=== PATIENT | female | born 1960 | race Caucasian/White ===

== ENCOUNTER 2017-12-26 17:23 | Observation (INO) | payer SELFPAY, OTHER ==
[~2017-12-26 17:23] MED LIST: ISOVUE-370 76%-LOCM 1 ML ONE
[2017-12-26 18:31] LABS: ALT (SGPT) 22 U/L (8-55); AST (SGOT) 40 U/L (5-34); Albumin 3.6 g/dL (3.5-5.0); Alkaline Phosphatase 97 U/L (40-150); Anion Gap 13 mmol/L (10-20); BUN (Urea Nitrogen) 4 mg/dL (9.8-20.1); Bilirubin, Total 1.2 mg/dL (0.2-1.2); Calc. Creatinine Clearance 0 mL/min (70-130); Carbon Dioxide 22 mmol/L (22-29); Chloride 101 mmol/L (98-107); Estimated GFR-MDRD Greater than 90; Globulin 2.9 g/dL (2.4-3.5); Glucose 141 mg/dL (70-105); Lipase 928 U/L (8-78); Magnesium 1.4 mg/dL (1.6-2.6); Potassium 3.2 mmol/L (3.5-5.1); Protein, Total 6.5 g/dL (6.0-8.3); Sodium 133 mmol/L (136-145)
[2017-12-26] MEDS ORDERED: Promethazine HCl 25 MG/ML VIAL ONE (18:31)
[2017-12-26 18:56] LABS: Bilirubin Negative (Negative); Blood, Urine Negative (Negative); Clarity CLEAR (Clear); Glucose, Urine (Dipstick) 100 mg/dL (Negative); Leukocyte Negative (Negative); Nitrite Negative (Negative); Protein, Urine (Dipstick) Negative (Neg-Trace); Specific Gravity, Urine 1.017 (1.002-1.036); Urobilinogen 0.2 mg/dL (0.2-1.0)
--- NOTE | 2017-12-26 19:12 | CT ---
ABDOMEN CT WITH CONTRAST PELVIC CT WITH CONTRAST: Date: 12/26/17 HISTORY: Pancreatitis. HISTORY: Elevated lipase. Nausea and vomiting. COMPARISON: None. FINDINGS: ABDOMEN CT: Lung bases are clear. Heart size is normal. No pericardial effusion. The descending thoracic aorta an d abdominal aorta have a normal caliber. No periaortic fat stranding. There is calcification of the l eft and right renal artery ostium. Symmetric attenuation of the psoas muscles. Gallbladder is unremarkable. Portal vein is patent. Hepatic steatosis is noted. No evidence of hepatic masses. The spleen and adrenal glands are unremark able. There is evidence of edematous change involving the head and proximal body of the pancreas. The pancr eatic duct is mildly dilated, measuring 4.0 mm. No evidence of a pancreatic cyst, pseudocyst, or jennifer pancreatic abscess. The adjacent duodenum does not demonstrate any significant inflammatory change. L imited evaluation of the alimentary canal. No evidence of bowel obstruction. Ileocecal junction is no rmal. Colon is unremarkable. There is evidence of diverticulosis, without evidence of diverticulitis. Symmetric enhancement of the kidneys. Bilaterally, no obstructive uropathy. CT PELVIS: Uterus and adnexal structures are unremarkable. No pelvic mass, lymphadenopathy, free air, or free fl uid. No lytic or blastic lesions in the osseous structures. IMPRESSION: Peripancreatic inflammatory change, compatible with patient's history of pancreatitis. No evidence of pancreatic cyst, pseudocyst, or abscess. POS: [facility]
[2017-12-26] MEDS ORDERED: Labetalol HCl 100 MG/20 ML VIAL ONE (19:52)
[2017-12-26] MEDS ORDERED: Magnesium 2 GM/50 ML 2 GM in Premix Bag 1 BAG IVPB ONE (20:30)
[2017-12-26] MEDS ORDERED: Acetaminophen 325 MG TAB PO PRN (21:06)
[2017-12-26] MEDS ORDERED: Acetaminophen 650 MG Suppository PR PRN (21:06)
[2017-12-26] MEDS ORDERED: Ondansetron HCl/PF 4 MG/2 ML Vial IVP PRN (21:06)
[2017-12-26] MEDS ORDERED: Enoxaparin Sodium 40 MG/0.4 ML SYRINGE SC SCH (21:15)
[2017-12-26] MEDS ORDERED: hydrALAZINE 20 MG/ML VIAL SLOW IVP PRN (21:26)
[2017-12-26] MEDS ORDERED: Magnesium 2 GM/50 ML 2 GM in Premix Bag 1 BAG IVPB SCH (21:30)
[2017-12-26 22:16] VITALS: BMI 18.5
--- NOTE | 2017-12-26 23:00 | HP ---
CHIEF COMPLAINT: Abdominal discomfort, nausea, and vomiting. HISTORY OF PRESENT ILLNESS: This is a 57-year-old female with past medical history of hypertension, anxiety, presenting with nausea, vomiting which started last night prior to the day of admission. Pe r neighbor and patient, patient has been vomiting continuously and she cannot be able to count how ma ny times she vomited, vomitus is nonbloody, nonbilious and patient states that she did not eat any ne w food and this is fairly new to her. She has not had this much vomiting in the past and patient sta cheryl that because of the vomiting, she has been having now generalized weakness. She is not able to t olerate anything p.o. The patient describes her abdominal discomfort as you know dull, crampy, abdom inal discomfort which does not radiate to the back. The patient states that due to continuous vomiti ng she [facility] and at the [facility], laboratory results came back wit h abnormal lipase; therefore, patient was then transferred to [facility] to be treated. The patien t denies any fever, headaches, dizziness, chills, chest pain, palpitations, urinary incontinence, con stipation or diarrhea. REVIEW OF SYSTEMS: Positive for nausea, vomiting, abdominal discomfort, otherwise as stated in HPI, all other systems were reviewed and are negative. PAST MEDICAL HISTORY: Hypertension. PAST SURGICAL HISTORY: , breast augmentation. PAST PSYCHIATRIC HISTORY: Anxiety. SOCIAL HISTORY: The patient lives at home. The patient states that she has a son who is 27 years ol d. The patient states that she drinks occasionally, smokes 2 packs per day. The patient denies any illicit drug use. ALLERGIES: The patient is allergic to AVELOX and CEPHALOSPORINS. FAMILY HISTORY: Reviewed and noncontributory. PHYSICAL EXAMINATION: VITAL SIGNS: Blood pressure 186/119, heart rate of 103, respiratory rate of 16, temperature of 98.5, oxygen saturation of 99 on room air. GENERAL: The patient is awake, alert, oriented, speaking in full sentences, does not appear to be in any acute distress. HEENT: Normocephalic, atraumatic. Pupils are equally round and reactive to light. Extraocular move ments are intact. No scleral icterus. Mucous membranes are dry. NECK: No JVD. Trachea is midline. Supple. LUNGS: Clear to auscultation bilaterally. No wheezing, no rales, no rhonchi. CARDIOVASCULAR: Positive S1, S2, regular rate and rhythm. No murmurs, no rubs, no gallops. ABDOMEN: Nontender, nondistended, hypoactive bowel sounds. No ecchymosis noted. EXTREMITIES: The patient has 5/5 upper extremity strength, 5/5 lower extremity strength. The patien t has good pulses of the upper and lower extremities bilaterally. No edema noted. NEUROLOGIC: Cranial nerves II-XII grossly intact. No neurological deficits noted. PSYCHIATRIC: The patient is alert, oriented x3, normal affect. LABORATORY DATA: Sodium 133, potassium 3.2, chloride 101, carbon dioxide of 22, anion gap of , BUN is 4, creatinine 0.6, glucose 141, calcium is 8.0, magnesium is 1.4, total bilirubin is 1.2, AST is 40, ALT is 22, alkaline phosphatase is 97, lipase of 928. Urinalysis negative for nitrite, negati ve for leukoesterase. Hematology: WBC of 14.3, RBC of 4.83, hemoglobin of 14.4, hematocrit of 42.9, MCV is 88.8, RDW is 13.1, and platelet count is 294. IMAGING: A CT of the abdomen and pelvis showed there is evidence of edematous change involving the h ead and proximal body of the pancreas. The pancreatic duct is mildly dilated measuring 4.0 mm. No e vidence of pancreatic cyst, pseudocyst or peripancreatic abscess. The adjacent duodenum does not dem onstrate any significant inflammatory change. Limited evaluation of the alimentary canal, no evidenc e of bowel obstruction. Ileocecal junction is normal. Colon is unremarkable. There is evidence of diverticulosis without evidence of diverticulitis. Impression showed that there is peripancreatic in flammatory change compatible with patient's history of pancreatitis. No evidence of pancreatic cyst, pseudocyst or abscess. ASSESSMENT AND PLAN: This is a 57-year-old female being admitted for: 1. Abdominal discomfort, nausea, and vomiting, likely secondary to acute pancreatitis as patient's l ipase is elevated at 968 and there is some inflammation around the pancreas. The patient has been st arted on IV fluids. We will continue the patient on IV fluids. We will make patient n.p.o. We will replete electrolytes and we will continue supportive care. We will give patient pain medication as needed. 2. Hypertension, uncontrolled. The patient's blood pressure is elevated in 180s. We will give the patient hydralazine p.r.n. The patient did not take her home medications due to vomiting and nausea. 3. History of anxiety. At this point, hold patient's home medications. We will start the patient's home medication when the patient is able to tolerate p.o. 4. Electrolyte derangements. We replete magnesium and potassium and we will check labs in the [facility]. 5. Deep venous thrombosis and gastrointestinal prophylaxis. We will do Lovenox and Pepcid.
[2017-12-26] MEDS: Lactated Ringer's 1,000 ML IV SCH (23:07)
[2017-12-26] MEDS ORDERED: Magnesium Sulfate 2 GM in Sodium Chloride 0.9% 100 ML IVPB SCH (23:30)
[2017-12-26] MEDS: Nicotine 21 MG PATCH TD SCH (23:39)
[2017-12-27] MEDS: Lactated Ringer's 1,000 ML IV SCH ×2 (05:29→17:10)
[2017-12-27 05:41] LABS: ALT (SGPT) 21 U/L (8-55); AST (SGOT) 45 U/L (5-34); Albumin 3.7 g/dL (3.5-5.0); Alkaline Phosphatase 102 U/L (40-150); Anion Gap 14 mmol/L (10-20); BUN (Urea Nitrogen) Less than 4 mg/dL (9.8-20.1); Bilirubin, Total 1.3 mg/dL (0.2-1.2); Calc. Creatinine Clearance 91 mL/min (70-130); Calcium 8.3 mg/dL (7.8-10.44); Carbon Dioxide 25 mmol/L (22-29); Cardiac Risk 2.4 (Less than 4.5); Chloride 92 mmol/L (98-107); Cholesterol 174 mg/dl (< 200 Desired); Estimated GFR-MDRD Greater than 90; Globulin 3.1 g/dL (2.4-3.5); Glucose 131 mg/dL (70-105); HDL Cholesterol 74 mg/dL (>60 Neg Risk); LDL Cholesterol, Calculated 71 mg/dL; Magnesium 2.2 mg/dL (1.6-2.6); Protein, Total 6.8 g/dL (6.0-8.3); Sodium 129 mmol/L (136-145); Triglycerides 146 mg/dL (Less than 150)
[2017-12-27 05:45] LABS: Potassium 2.2 mmol/L (3.5-5.1)
[2017-12-27 05:46] LABS: #Basophils 0.1 thou/uL (0.0-0.2); #Lymphocytes 2.3 thou/uL (1.20-3.40); #Monocytes 0.5 thou/uL (0.11-0.59); #Neutrophils 6.9 thou/uL (1.40-6.50); %Basophils 0.9 % (0.0-1.0); %Eosinophils 0.2 % (0.0-10.0); %Lymphocytes 23.3 % (21.0-51.0); %Monocytes 4.7 % (0.0-10.0); %Neutrophils 70.9 % (42.0-75.0); Hemoglobin 13.2 g/dL (12.0-16.0); Mean Corpuscular HGB CONC 33.7 g/dL (32.0-36.0); Mean Corpuscular Hemoglobin 30.7 pg (27.0-31.0); Mean Corpuscular Volume 91.2 fL (78.0-98.0); Mean Platelet Volume 7.4 fL (7.4-10.4); Platelet Count 250 thou/uL (130-400); RBC Distribution Width 13.5 % (11.5-14.5); Red Blood Cell (RBC) Count 4.31 mill/uL (4.20-5.40); White Blood Cell (WBC) Count 9.7 thou/uL (4.8-10.8)
[2017-12-27] MEDS: Potassium Chloride 20 MEQ in Premix Bag 1 BAG IVPB SCH ×2 (06:53→14:07)
--- NOTE | 2017-12-27 07:41 | ULT ---
RIGHT UPPER QUADRANT ULTRASOUND: Date: 12/27/17 INDICATION: Nausea and vomiting with pancreatitis. COMPARISON: CT of the abdomen and pelvis dated 12/26/17 at 1811 hours. TECHNIQUE: Bell scale, color Doppler, and spectral Doppler images were obtained of the right upper quadrant of t he abdomen. FINDINGS: The liver demonstrates no focal hepatic lesion. There is prominent edema surrounding the pancreatic head. The pancreatic duct at the level of the hea d measures 2.9 mm, which is slightly prominent. The gallbladder demonstrates no visible intraluminal stones. No gallbladder wall thickening or perich olecystic fluid is evident. No sonographic Sexton's sign is reported. Common bile duct measures up to 5.0 mm, which is within normal limits. The right kidney measures 10.0 x 3.8 x 3.8 cm. IMPRESSION: 1. No evidence of gallstones. 2. No evidence of acute cholecystitis. 3. Findings of peripancreatic edema consistent with patient's history of pancreatitis. There is slig ht prominence of the main pancreatic duct, which may be secondary to prominent edematous change in an d around the pancreatic head. Follow-up is recommended. POS: [facility]
[2017-12-27] MEDS ORDERED: Famotidine 20 MG TAB PO SCH ×2 (09:00→22:00)
[2017-12-27] MEDS: Famotidine/PF 20 mg/2ml Vial SLOW IVP SCH ×2 (09:24→22:04)
[2017-12-27] MEDS ORDERED: Potassium Chloride 20 MEQ TAB PO SCH ×3 (10:15→13:45)
[2017-12-27 12:34] LABS: ALT (SGPT) 18 U/L (8-55); AST (SGOT) 46 U/L (5-34); Albumin 3.6 g/dL (3.5-5.0); Alkaline Phosphatase 92 U/L (40-150); Anion Gap 16 mmol/L (10-20); BUN (Urea Nitrogen) Less than 4 mg/dL (9.8-20.1); Bilirubin, Direct 0.5 mg/dL (0.1-0.3); Bilirubin, Total 1.3 mg/dL (0.2-1.2); Calc. Creatinine Clearance 76 mL/min (70-130); Calcium 8.2 mg/dL (7.8-10.44); Carbon Dioxide 21 mmol/L (22-29); Chloride 93 mmol/L (98-107); Estimated GFR-MDRD 85; Glucose 173 mg/dL (70-105); Protein, Total 6.6 g/dL (6.0-8.3); Sodium 127 mmol/L (136-145)
--- NOTE | 2017-12-27 13:25 | PDOC.PN ---
- Subjective Encounter Start Date: 12/27/17 Encounter Start Time: 10:30 Subjective: pt up in bed no pain - Objective Resuscitation Status: Resuscitation Status FULL:Full Resuscitation Vital Signs & Weight: Vital Signs (12 hours) Temp Pulse Resp BP Pulse Ox 12/27/17 11:33 98.6 F 107 H 20 133/89 100 12/27/17 08:18 98.4 F 91 16 134/84 99 12/27/17 03:20 99.4 F 71 16 111/67 95 Weight Weight 118 lb 4.8 oz I&O: 12/26/17 12/27/17 12/28/17 06:59 06:59 06:59 Intake Total 1603 Output Total 1200 Balance 403 Result Diagrams: 12/27/17 04:45 12/27/17 11:53 Phys Exam - Physical Examination Respiratory: no wheezing, no rales, no rhonchi, wheezing present, clear to auscultation bilateral Cardiovascular: RRR, no significant murmur, no rub, gallop, irregular Gastrointestinal: soft, non-tender, no distention, positive bowel sounds Musculoskeletal: no edema, pulses present, edema present Dx/Plan (1) Pancreatitis Code(s): K85.90 - ACUTE PANCREATITIS WITHOUT NECROSIS OR INFECTION, UNSP Status: Acute (2) Nausea & vomiting Code(s): R11.2 - NAUSEA WITH VOMITING, UNSPECIFIED Status: Acute (3) Hypokalemia Code(s): E87.6 - HYPOKALEMIA Status: Acute (4) Hyponatremia Code(s): E87.1 - HYPO-OSMOLALITY AND HYPONATREMIA Status: Acute - Plan will advance diet -: pt's electrolytes are still low -: RUQ no gallstones -: if Na and K improved in am may be discharged -: discontinue fluids * . Review of Systems - Review of Systems ENT: negative: Ear Pain, Ear Discharge, Nose Pain, Nose Discharge, Nose Congestion, Mouth Pain, Mouth Swelling, Throat Pain, Throat Swelling, Other Respiratory: negative: Cough, Dry, Shortness of Breath, Hemoptysis, SOB with Excertion, Pleuritic Pain, Sputum, Wheezing Cardiovascular: negative: chest pain, palpitations, orthopnea, paroxysmal nocturnal dyspnea, edema, light headedness, other Gastrointestinal: negative: Nausea, Vomiting, Abdominal Pain, Diarrhea, Constipation, Melena, Hematochezia, Other Genitourinary: negative: Dysuria, Frequency, Incontinence, Hematuria, Retention , Other - Medications/Allergies Allergies/Adverse Reactions: Allergies Allergy/AdvReac Type Severity Reaction Status Date / Time Cephalosporins Allergy Rash Verified 12/26/17 22:23 Medications: Current Medications Acetaminophen (Tylenol) 650 mg PO Q4H PRN PRN Reason: Headache/Fever/Mild Pain (1-3) Last Admin: 12/27/17 10:46 Dose: 650 mg Acetaminophen (Tylenol) 650 mg MA Q4H PRN PRN Reason: Headache/Fever/Mild Pain (1-3) Famotidine (Pepcid) 20 mg SLOW IVP BID [facility] Last Admin: 12/27/17 09:24 Dose: 20 mg Hydralazine HCl (Apresoline) 10 mg SLOW IVP Q4H PRN PRN Reason: Hypertension Potassium Chloride 20 meq/ (Device) 100 mls @ 50 mls/hr IVPB [id number] [facility] Last Admin: 12/27/17 06:53 Dose: 100 mls Nicotine (Nicoderm Patch) 21 mg TD Q24HR [facility] Last Admin: 12/26/17 23:39 Dose: Not Given Ondansetron HCl (Zofran) 4 mg IVP Q6H PRN PRN Reason: Nausea/Vomiting Potassium Chloride (K-Dur) 40 meq PO BID-[facility] Sodium Chloride (Flush - Normal Saline) 10 ml IVF Q12HR PRN PRN Reason: Saline Flush
[2017-12-27] MEDS: Potassium Chloride 20 MEQ TAB PO SCH (17:39)
[2017-12-27] MEDS: Nicotine 21 MG PATCH TD SCH (22:08)
[2017-12-28 04:48] LABS: Anion Gap 13 mmol/L (10-20); BUN (Urea Nitrogen) Less than 4 mg/dL (9.8-20.1); Calc. Creatinine Clearance 85 mL/min (70-130); Calcium 8.8 mg/dL (7.8-10.44); Carbon Dioxide 23 mmol/L (22-29); Chloride 96 mmol/L (98-107); Estimated GFR-MDRD Greater than 90; Glucose 100 mg/dL (70-105); Sodium 128 mmol/L (136-145)
[2017-12-28 08:04] VITALS: BP 147/91; TEMP 98.1
[2017-12-28] MEDS: Potassium Chloride 20 MEQ TAB PO SCH (08:45)
[2017-12-28] MEDS ORDERED: Famotidine 20 MG TAB PO SCH (09:00)
--- NOTE | 2017-12-29 13:22 | DIS ---
DATE OF ADMISSION: 12/26/2017 DATE OF DISCHARGE: 12/28/2017 DISCHARGE DIAGNOSES: 1. Pancreatitis. 2. Nausea, vomiting. 3. Hypokalemia. 4. Hyponatremia. HISTORY OF PRESENT ILLNESS: Patient is a 57[facility] with some epigastric abdominal pain without radiati on. Patient initially presented to an outside facility where her labs were notable for elevated lipa se. Therefore, she was referred to our emergency department. Initially, the patient's white count w as 14.3. Sodium was slightly low at 134, potassium 3.1. Lipase was 1395. HOSPITAL COURSE: The patient was admitted to the hospital with what appeared to be pancreatitis. Ul trasound of the abdomen showed no evidence of gallstones or cholecystitis with evidence of peripancre atic edema consistent with pancreatitis and prominence of the main pancreatic duct. CT scan of the a bdomen revealed peripancreatic inflammation with no evidence of cyst, pseudocyst, or abscess. Her sy mptoms significantly improved with replacement of IV fluids for potassium normalized. Her sodium rem ained a bit low; however, prior records, she had some history of hyponatremia and she appeared to be stable at her current levels and she was completely asymptomatic and eager for discharge to [facility]. PHYSICAL EXAMINATION: VITAL SIGNS: On the day of discharge, temperature was 98.1, pulse 91, respirations 16, O2 saturation 98%, blood pressure was 147/91. GENERAL: She was awake, alert, oriented, pleasant, cooperative. HEART: Regular rate and rhythm without murmurs. LUNGS: Clear bilaterally. ABDOMEN: Soft, nontender, nondistended with positive bowel sounds. EXTREMITIES: Warm and dry. LABORATORY DATA: Sodium was 128. Her repeat lipase on the 2nd, it had come down to 928. White coun t had come down to 9.7. DISPOSITION: The patient is discharged to home. She will be on a regular diet and activity is as to lerated. She is encouraged to potentially stay away from high-fat foods. She will be on metoprolol 50 mg every day, eszopiclone 3 mg at bedtime, Klonopin 0.5 mg b.i.d. She is encouraged to avoid alco hol consumption. She is to follow up with Dr. Zamarripa in 7 days. I explained that Dr. Zamarripa _ ____ further investigations should he feel appropriate in order to continue to assess potential sourc es of the pancreatitis. She does not have significant alcohol abuse and appeared to have a normal ga llbladder.
== END 2017-12-28 09:57 | disposition home or self-care (01) ==
LOC: ERS 17:23 → 2SW 20:27
PROVIDERS: ADMIT Internal Medicine; ATTEND Internal Medicine
DX: K85.90 Acute pancreatitis without necrosis or infection, unspecified (principal); E87.6 Hypokalemia; E87.1 Hypo-osmolality and hyponatremia; I10 Essential (primary) hypertension; F41.9 Anxiety disorder, unspecified; F17.210 Nicotine dependence, cigarettes, uncomplicated; Z79.899 Other long term (current) drug therapy; Z88.1 Allergy status to other antibiotic agents
CPT/HCPCS: 36415; 74177; 76705; 80048; 80053; 80061; 83690; 83735; 85025; 96361; 96365; 96366; 96367; 96372; 96375; G0378; J1650; J2550; J3475; J3480; J7050; S0028

== ENCOUNTER 2024-03-13 14:19 | Inpatient (IN) | payer SELFPAY ==
[~2024-03-13 14:19] MED LIST changes: -ISOVUE-370 76%-LOCM 1 ML ONE; +Iopamidol-370 76% 500 ML MDV (1 ML CHARGE) ONE
[2024-03-13] MEDS ORDERED: LORazepam 2 MG/ML SYR.(CARPUJECT) ONE (14:35)
[2024-03-13 15:24] LABS: Actual Bicarbonate (HCO3v) 18.8 mEq/L (22-28); Analyzer IN Cardio ER; Base Excess -4.1 mEq/L (-2.0 to +3.0); Chloride (VBG) 83 mmol/L (98-106); Hematocrit-VBG 36 % (36.0-47.0); Hemoglobin (Hb) 12.2 g/dL (11.7-16.0); Potassium (VBG) 2.76 mmol/L (3.70-5.30); Sodium 113 mmol/L (133-146); pH (venous) 7.443 (7.32-7.43)
[2024-03-13 15:26] LABS: #Basophils 0.06 10x3/uL (0.0-0.2); #Eosinophils Less than 0.03 10x3/uL (0.0-0.7); %Basophils 0.4 % (0.0-1.0); %Eosinophils 0.1 % (0.0-10.0); %Lymphocytes 22.8 % (21.0-51.0); %Monocytes 7.9 % (0.0-10.0); Hematocrit 29.9 % (36.0-47.0); Mean Corpuscular HGB CONC 36.8 g/dL (32.0-36.0); Mean Corpuscular Volume 81.5 fL (78.0-98.0); Mean Platelet Volume 8.9 fL (7.4-10.4); Platelet Count 351 10x3/uL (130-400); RBC Distribution Width 13.6 % (11.5-14.5); Red Blood Cell (RBC) Count 3.67 mill/uL (4.20-5.40)
[2024-03-13 15:50] LABS: Chloride 84 mmol/L (98-107); Potassium 2.8 mmol/L (3.5-5.1)
[2024-03-13 15:51] LABS: Calcium 7.8 mg/dL (7.8-10.44); Glucose 135 mg/dL (80-115)
[2024-03-13 15:53] LABS: Anion Gap 17 mmol/L (10-20); Carbon Dioxide 14 mmol/L (23-31)
[2024-03-13 15:55] LABS: BUN (Urea Nitrogen) 5 mg/dL (9.8-20.1); Calc. Creatinine Clearance 0 mL/min (70-130); Estimated GFR 97
[2024-03-13 16:02] LABS: Sodium 112 mmol/L (136-145)
[2024-03-13] MEDS ORDERED: Calcium Carbonate 500 MG ChewTAB PO PRN (16:22)
[2024-03-13] MEDS ORDERED: Acetaminophen 650 MG Suppository PR PRN (16:22)
[2024-03-13] MEDS ORDERED: Ondansetron ODT 4 MG TAB PO PRN (16:22)
[2024-03-13] MEDS ORDERED: Acetaminophen 325 MG TAB PO PRN (16:22)
[2024-03-13] MEDS ORDERED: Ondansetron PF 4 MG/2 ML Vial IVP PRN (16:22)
[2024-03-13] MEDS ORDERED: Lorazepam 2 MG/ML VIAL SLOW IVP PRN (16:24)
[2024-03-13] MEDS: Admixture Fee 1 EACH in Sodium Chloride 3% 100 ML IVPB SCH (18:19)
[2024-03-13] MEDS ORDERED: clonazePAM 1 MG TAB PO SCH (19:30)
[2024-03-13] MEDS ORDERED: Electrolyte Replacement Protocol FS SCH (19:45)
[2024-03-13 19:48] LABS: Anion Gap 16 mmol/L (10-20); BUN (Urea Nitrogen) 5 mg/dL (9.8-20.1); Calc. Creatinine Clearance 92 mL/min (70-130); Calcium 7.8 mg/dL (7.8-10.44); Carbon Dioxide 19 mmol/L (23-31); Chloride 85 mmol/L (98-107); Estimated GFR 100; Glucose 119 mg/dL (80-115); Potassium 2.7 mmol/L (3.5-5.1)
[2024-03-13 19:51] LABS: Sodium 117 mmol/L (136-145)
[2024-03-13] MEDS ORDERED: Famotidine 20 MG TAB ONE (20:12)
[2024-03-13] MEDS ORDERED: chlordiazePOXIDE HCl 25 MG CAP ONE (20:12)
[2024-03-13] MEDS ORDERED: Thiamine HCl 200 MG/2 ML VIAL ONE (20:12)
[2024-03-13 20:16] LABS: Phosphorus 2.5 mg/dL (2.3-4.7)
[2024-03-13] MEDS: Famotidine 20 MG TAB PO SCH (20:20)
[2024-03-13] MEDS: Thiamine HCl 200 MG/2 ML VIAL SLOW IVP SCH (20:20)
[2024-03-13] MEDS: chlordiazePOXIDE HCl 25 MG CAP PO SCH (20:20)
[2024-03-13 20:22] LABS: Anion Gap 13 mmol/L (10-20); BUN (Urea Nitrogen) 5 mg/dL (9.8-20.1); Calc. Creatinine Clearance 92 mL/min (70-130); Calcium 7.9 mg/dL (7.8-10.44); Carbon Dioxide 20 mmol/L (23-31); Chloride 87 mmol/L (98-107); Estimated GFR 100; Glucose 110 mg/dL (80-115); Magnesium 1.7 mg/dL (1.6-2.6); Sodium 117 mmol/L (136-145)
[2024-03-13 22:31] LABS: Anion Gap 12 mmol/L (10-20); BUN (Urea Nitrogen) 4 mg/dL (9.8-20.1); Calc. Creatinine Clearance 95 mL/min (70-130); Carbon Dioxide 19 mmol/L (23-31); Chloride 90 mmol/L (98-107); Estimated GFR 101; Glucose 101 mg/dL (80-115); Potassium 2.9 mmol/L (3.5-5.1); Sodium 118 mmol/L (136-145)
[2024-03-13] MEDS: Famotidine/PF 20 mg/2ml Vial SLOW IVP SCH (22:45)
[2024-03-13] MEDS: Magnesium 2 GM/50 ML(in water) 2 GM in Premix 1 BAG IVPB SCH (23:30)
[2024-03-13] MEDS: Lorazepam 2 MG/ML VIAL SLOW IVP PRN (23:32)
[2024-03-13] MEDS: Potassium Chloride 20 MEQ TAB PO SCH (23:32)
[2024-03-14] MEDS: Lorazepam 2 MG/ML VIAL SLOW IVP SCH (00:50)
[2024-03-14] MEDS: Dexmedetomidine In 0.9 % NaCl 100 ML IVPB SCH (00:50)
[2024-03-14 01:09] LABS: Bilirubin Negative (Negative); Blood, Urine Negative (Negative); CAUTI Indications for Culture Alt mental st,lethar; Clarity Clear (Clear); Glucose, Urine (Dipstick) Normal (Negative); Ketone, Urine Negative (Negative); Leukocyte Negative Leu/uL (Negative); Nitrite Negative (Negative); Protein, Urine (Dipstick) Negative (Neg-Trace); RBC/HPF 0-3 HPF (0-3); Specific Gravity, Urine 1.003 (1.002-1.036); Squamous Epithelial 0-3 HPF (0-3); Urobilinogen Normal mg/dL (Less than 2); WBC/HPF 0-3 HPF (0-3)
[2024-03-14 01:10] LABS: Bacteria/HPF 1+ HPF (None Seen); Urine Culture Reflex No No
[2024-03-14 01:21] LABS: Anion Gap 15 mmol/L (10-20); BUN (Urea Nitrogen) 5 mg/dL (9.8-20.1); Calc. Creatinine Clearance 88 mL/min (70-130); Calcium 8.1 mg/dL (7.8-10.44); Carbon Dioxide 22 mmol/L (23-31); Chloride 88 mmol/L (98-107); Estimated GFR 99; Glucose 104 mg/dL (80-115); Potassium 3.1 mmol/L (3.5-5.1); Sodium 122 mmol/L (136-145)
[2024-03-14] MEDS ORDERED: Dextrose 5% in Water 1,000 ML IV SCH (02:00)
[2024-03-14 05:48] VITALS: BMI 18.6
[2024-03-14 05:52] LABS: #Basophils 0.07 10x3/uL (0.0-0.2); %Basophils 0.5 % (0.0-1.0); %Eosinophils 0.5 % (0.0-10.0); %Lymphocytes 27.1 % (21.0-51.0); %Monocytes 8.4 % (0.0-10.0); Hematocrit 33.3 % (36.0-47.0); Hemoglobin 11.9 g/dL (12.0-16.0); Mean Corpuscular HGB CONC 35.7 g/dL (32.0-36.0); Mean Corpuscular Hemoglobin 29.3 pg (27.0-31.0); Platelet Count 390 10x3/uL (130-400); RBC Distribution Width 13.9 % (11.5-14.5); Red Blood Cell (RBC) Count 4.06 mill/uL (4.20-5.40)
[2024-03-14 06:10] LABS: Anion Gap 12 mmol/L (10-20); BUN (Urea Nitrogen) 5 mg/dL (9.8-20.1); Calc. Creatinine Clearance 75 mL/min (70-130); Calcium 8.1 mg/dL (7.8-10.44); Carbon Dioxide 23 mmol/L (23-31); Chloride 92 mmol/L (98-107); Estimated GFR 99; Glucose 101 mg/dL (80-115); Magnesium 2.8 mg/dL (1.6-2.6); Phosphorus 3.1 mg/dL (2.3-4.7); Potassium 3.3 mmol/L (3.5-5.1); Sodium 124 mmol/L (136-145)
[2024-03-14] MEDS ORDERED: Electrolyte Replacement Protocol FS PRN (06:15)
[2024-03-14] MEDS: Dextrose 5% in Water 1,000 ML IV SCH (06:26)
[2024-03-14] MEDS: Potassium Chloride 20 MEQ TAB PO SCH (06:34)
[2024-03-14 06:52] LABS: Anion Gap 12 mmol/L (10-20); BUN (Urea Nitrogen) 4 mg/dL (9.8-20.1); Calc. Creatinine Clearance 74 mL/min (70-130); Calcium 8.2 mg/dL (7.8-10.44); Carbon Dioxide 24 mmol/L (23-31); Chloride 92 mmol/L (98-107); Estimated GFR 99; Glucose 102 mg/dL (80-115); Potassium 3.4 mmol/L (3.5-5.1); Sodium 125 mmol/L (136-145)
[2024-03-14 08:37] LABS: Anion Gap 12 mmol/L (10-20); BUN (Urea Nitrogen) 4 mg/dL (9.8-20.1); Calc. Creatinine Clearance 76 mL/min (70-130); Calcium 7.9 mg/dL (7.8-10.44); Carbon Dioxide 21 mmol/L (23-31); Chloride 94 mmol/L (98-107); Estimated GFR 100; Glucose 110 mg/dL (80-115); Potassium 3.6 mmol/L (3.5-5.1); Sodium 123 mmol/L (136-145)
[2024-03-14] MEDS: Folic Acid 1 MG TAB PO SCH (09:26)
[2024-03-14] MEDS: Multivitamin W/ Minerals 1 TAB PO SCH (09:27)
[2024-03-14] MEDS: Sodium Chloride 0.9% 1,000 ML IV SCH (09:28)
[2024-03-14 12:27] LABS: Potassium 4.1 mmol/L (3.5-5.1)
[2024-03-14 15:29] VITALS: BMI 18.6
[2024-03-15] MEDS: Loratadine 10 MG TAB PO SCH (05:25)
[2024-03-15 07:03] LABS: Anion Gap 11 mmol/L (10-20); BUN (Urea Nitrogen) 4 mg/dL (9.8-20.1); Calc. Creatinine Clearance 64 mL/min (70-130); Calcium 7.9 mg/dL (7.8-10.44); Carbon Dioxide 19 mmol/L (23-31); Chloride 104 mmol/L (98-107); Estimated GFR 84; Glucose 89 mg/dL (80-115); Magnesium 2.1 mg/dL (1.6-2.6); Potassium 3.8 mmol/L (3.5-5.1); Sodium 130 mmol/L (136-145)
[2024-03-15 15:53] VITALS: TEMP 98.5
[2024-03-15 16:04] VITALS: BP 149/76
[2024-03-17] MEDS ORDERED: chlordiazePOXIDE HCl 5 MG CAP PO SCH (21:00)
[2024-03-17] MEDS ORDERED: Thiamine 100 MG TAB PO SCH (21:00)
[2024-03-21] MEDS ORDERED: chlordiazePOXIDE HCl 5 MG CAP PO SCH (21:00)
== END 2024-03-15 18:55 | disposition left against medical advice (07) | DRG 643 ==
LOC: ERS 14:19 → ERHOLD 16:28 → CCU 20:54 → T4-A 03-15 15:08
PROVIDERS: ADMIT Student in an Organized Health Care Education/Training Program; ATTEND Family Medicine
PROC: XX20X89 Monitoring of Brain Electrical Activity, Computer-aided Detection and Notification, New Technology Group 9 (ICD-10-PCS; principal; 2024-03-13)
DX: E22.2 Syndrome of inappropriate secretion of antidiuretic hormone (principal); G93.41 Metabolic encephalopathy; E46 Unspecified protein-calorie malnutrition; Z68.1 Body mass index [BMI] 19.9 or less, adult; E87.20 Acidosis, unspecified; E87.6 Hypokalemia; I10 Essential (primary) hypertension; D72.829 Elevated white blood cell count, unspecified
CPT/HCPCS: 36415; 70450; 71045; 76770; 80048; 82805; 83735; 84100; 84300; 85025; 93005; 96361; 96374; J2060; J3411; J3475; J7030; J7070; J7131; Q9967

== ENCOUNTER 2024-04-11 20:04 | Inpatient (IN) | payer SELFPAY ==
[2024-04-11 21:29] VITALS: BMI 17.4
[2024-04-11] MEDS ORDERED: Ondansetron ODT 4 MG TAB PO PRN ×2 (21:49→21:57)
[2024-04-11] MEDS ORDERED: Bisacodyl 5 MG TAB PO PRN (21:49)
[2024-04-11] MEDS ORDERED: Acetaminophen 325 MG TAB PO PRN (21:49)
[2024-04-11] MEDS ORDERED: Senokot S 8.6-50 MG TAB PO PRN (21:49)
[2024-04-11] MEDS ORDERED: Acetaminophen 650 MG Suppository PR PRN (21:49)
[2024-04-11] MEDS ORDERED: Electrolyte Replacement Protocol 1 EACH FS SCH (22:00)
[2024-04-11] MEDS: Doxepin HCl 10 MG CAP PO PRN (22:43)
[2024-04-11] MEDS: Thiamine HCl 200 MG/2 ML VIAL SLOW IVP SCH (22:43)
[2024-04-11 23:19] LABS: Anion Gap 12 mmol/L (10-20); BUN (Urea Nitrogen) 4 mg/dL (9.8-20.1); Calc. Creatinine Clearance 70 mL/min (70-130); Calcium 8.2 mg/dL (7.8-10.44); Carbon Dioxide 25 mmol/L (23-31); Chloride 92 mmol/L (98-107); Estimated GFR 99; Glucose 102 mg/dL (80-115); Magnesium 1.7 mg/dL (1.6-2.6); Sodium 126 mmol/L (136-145)
[2024-04-11 23:20] LABS: Cardiac Risk 2.5 (Less than 4.5); Cholesterol 171 mg/dl (< 200 Desired); HDL Cholesterol 69 mg/dL (>60 Neg Risk); LDL Cholesterol, Calculated 88 mg/dL; Phosphorus 2.7 mg/dL (2.3-4.7); Triglycerides 71 mg/dL (Less than 150)
[2024-04-12] MEDS: Potassium Chloride 20 MEQ TAB PO SCH ×2 (01:04→09:07)
[2024-04-12] MEDS: Magnesium 2 GM/50 ML(in water) 2 GM in Premix 1 BAG IVPB SCH (01:04)
[2024-04-12] MEDS: traZODone HCl 50 MG TAB PO SCH (01:04)
[2024-04-12] MEDS: Lorazepam 1 MG TAB PO PRN (02:45)
[2024-04-12] MEDS: Melatonin 3 MG TAB PO PRN (02:45)
[2024-04-12 04:45] LABS: #Basophils 0.07 10x3/uL (0.0-0.2); #Eosinophils Less than 0.03 10x3/uL (0.0-0.7); %Basophils 0.7 % (0.0-1.0); %Eosinophils 0.2 % (0.0-10.0); %Lymphocytes 33.5 % (21.0-51.0); %Monocytes 9.9 % (0.0-10.0); %Neutrophils 55.1 % (42.0-75.0); Hematocrit 29.2 % (36.0-47.0); Hemoglobin 10.3 g/dL (12.0-16.0); Mean Corpuscular HGB CONC 35.3 g/dL (32.0-36.0); Mean Corpuscular Volume 82.3 fL (78.0-98.0); Mean Platelet Volume 9.5 fL (7.4-10.4); Platelet Count 323 10x3/uL (130-400); RBC Distribution Width 15.9 % (11.5-14.5); Red Blood Cell (RBC) Count 3.55 mill/uL (4.20-5.40)
[2024-04-12 05:30] LABS: Anion Gap 11 mmol/L (10-20); BUN (Urea Nitrogen) 4 mg/dL (9.8-20.1); Calc. Creatinine Clearance 73 mL/min (70-130); Carbon Dioxide 22 mmol/L (23-31); Chloride 95 mmol/L (98-107); Estimated GFR 100; Glucose 88 mg/dL (80-115); Potassium 3.3 mmol/L (3.5-5.1); Sodium 125 mmol/L (136-145)
[2024-04-12] MEDS: Multivit, Therapeutic 1 TAB PO SCH (09:07)
[2024-04-12] MEDS: Folic Acid 1 MG TAB PO SCH (09:07)
[2024-04-12] MEDS: Enoxaparin 40 MG (0.4 mL) SYRINGE SC SCH (09:07)
[2024-04-12] MEDS: Pantoprazole 40 MG DR.TAB PO SCH (09:08)
[2024-04-12 10:59] VITALS: BMI 17.4
[2024-04-12] MEDS: Sodium Chloride 1 GM TAB PO SCH (15:06)
[2024-04-12] MEDS: Simethicone Chewable 80 MG TAB PO PRN (15:06)
[2024-04-12 16:13] LABS: Potassium 5.1 mmol/L (3.5-5.1)
[2024-04-12 16:40] VITALS: BP 153/83; TEMP 98.8
[2024-04-12] MEDS ORDERED: Lorazepam 1 MG TAB PO PRN (21:57)
[2024-04-13] MEDS ORDERED: Lorazepam 1 MG TAB PO PRN (21:57)
[2024-04-14] MEDS ORDERED: Thiamine 100 MG TAB PO SCH (21:00)
[2024-04-14] MEDS ORDERED: Lorazepam 0.5 MG TAB PO PRN (21:57)
== END 2024-04-12 18:24 | disposition left against medical advice (07) | DRG 641 ==
LOC: 2NO 20:57 → OBSVTOIN 21:49
PROVIDERS: ADMIT Internal Medicine; ATTEND Internal Medicine
DX: E87.1 Hypo-osmolality and hyponatremia (principal); G47.00 Insomnia, unspecified; F41.9 Anxiety disorder, unspecified; I10 Essential (primary) hypertension; Z88.8 Allergy status to other drugs, medicaments and biological substances; Z79.899 Other long term (current) drug therapy; R77.8 Other specified abnormalities of plasma proteins; E87.6 Hypokalemia; E83.42 Hypomagnesemia
CPT/HCPCS: 36415; 80061; 83735; 83930; 84100; 84443; 85025; J1650; J3411; J3475

== ENCOUNTER 2024-12-10 20:44 | Inpatient (IN) | payer SELFPAY ==
[2024-12-10] MEDS ORDERED: NOREPINEPHRINE 8 MG/250 ML-D5W 250 ML ONE (20:51)
[2024-12-10 21:07] LABS: Analyzer IN Cardio ER; Base Excess (BEa) -8.9 mEq/L (-2.0 to +3.0); CO2 Tension 25.3 mmHg (35.0-45.0); Calcium, Ionized (arterial) 1.31 mmol/L (1.12-1.30); Hematocrit-ABG 37 % (36.0-47.0); Hemoglobin (Hb) 12.6 g/dL (12.0-16.0); O2 Tension (PaO2), arterial 169.0 mmHg (> 80.0); pH, Arterial 7.377 (7.35-7.45)
[2024-12-10 21:33] LABS: #Basophils 0.05 10x3/uL (0.0-0.2); #Eosinophils Less than 0.03 10x3/uL (0.0-0.7); #Monocytes 0.81 10x3/uL (0.11-0.59); #Neutrophils 18.00 10x3/uL (1.40-6.50); %Basophils 0.2 % (0.0-1.0); %Eosinophils 0.0 % (0.0-10.0); %Lymphocytes 9.3 % (21.0-51.0); %Monocytes 3.7 % (0.0-10.0); %Neutrophils 83.0 % (42.0-75.0); Hematocrit 35.6 % (36.0-47.0); Hemoglobin 11.0 g/dL (12.0-16.0); Mean Corpuscular Hemoglobin 29.5 pg (27.0-31.0); Mean Corpuscular Volume 95.4 fL (78.0-98.0); Platelet Count 268 10x3/uL (130-400); Red Blood Cell (RBC) Count 3.73 mill/uL (4.20-5.40); White Blood Cell (WBC) Count 21.72 10x3/uL (4.8-10.8)
[2024-12-10] MEDS ORDERED: LevoFLOXacin 750 mg/D5W 150 ml Premix Bag ONE (21:40)
[2024-12-10 21:47] LABS: Cocaine Metabolite Screen Negative (Negative); THC/Cannabinoid Screen PRELIM POSITIVE (Negative); Tricyclic Screen Negative (Negative)
[2024-12-10 21:50] LABS: Bacteria/HPF 4+ HPF (None Seen); CAUTI Indications for Culture Alt mental st,lethar; Glucose, Urine (Dipstick) Normal (Negative); Leukocyte 500 Leu/uL (Negative); Lipase 91 U/L (8-78); Protein, Urine (Dipstick) 30 mg/dL (Neg-Trace); RBC/HPF 21-50 HPF (0-3); Specific Gravity, Urine 1.013 (1.002-1.036); WBC/HPF Greater than 50 HPF (0-3)
[2024-12-10 21:52] LABS: Acetaminophen Less than 10 mcg/mL (Less than 10); Salicylate Less than 8.0 mg/dL (Less than 8.0)
[2024-12-10 22:01] LABS: ALT (SGPT) 21 U/L (Less than 34); AST (SGOT) 64 U/L (11-34); Albumin 2.2 g/dL (3.1-4.5); Alkaline Phosphatase 63 U/L (40-110); Anion Gap 23 mmol/L (10-20); BUN (Urea Nitrogen) 52 mg/dL (9.8-20.1); Bilirubin, Total 1.0 mg/dL (0.3-1.2); CK (CPK) 192 U/L (29-168); Calc. Creatinine Clearance 0 mL/min (70-130); Calcium 9.3 mg/dL (7.8-10.44); Carbon Dioxide 18 mmol/L (23-31); Chloride 131 mmol/L (98-107); Globulin 3.3 g/dL (2.4-3.5); Glucose 122 mg/dL (80-115); Potassium 2.3 mmol/L (3.5-5.1); Sodium 170 mmol/L (136-145)
[2024-12-10] MEDS ORDERED: Potassium Bicarbonate/Cit Ac 20 MEQ TAB ONE (22:45)
[2024-12-11] MEDS ORDERED: Ondansetron PF 4 MG/2 ML Vial IVP PRN (00:58)
[2024-12-11] MEDS ORDERED: Acetaminophen 325 MG TAB PO PRN (00:58)
[2024-12-11] MEDS ORDERED: DISCONTINUE PREVIOUS NARCOTIC PAIN MEDICATIONS AND BENZODIAZEPINES FS SCH (01:15)
[2024-12-11] MEDS ORDERED: Propofol BOLUS 1,000 MG/100 ML VIAL IV PRN (01:15)
[2024-12-11] MEDS ORDERED: Fentanyl BOLUS 100 ML IVPB PRN (01:15)
[2024-12-11] MEDS ORDERED: Ventilator Sedation Protocol 1 EACH FS SCH (01:15)
[2024-12-11 02:06] LABS: #Basophils 0.06 10x3/uL (0.0-0.2); #Eosinophils Less than 0.03 10x3/uL (0.0-0.7); #Monocytes 0.99 10x3/uL (0.11-0.59); #Neutrophils 17.02 10x3/uL (1.40-6.50); %Basophils 0.3 % (0.0-1.0); %Eosinophils 0.0 % (0.0-10.0); %Lymphocytes 17.1 % (21.0-51.0); %Monocytes 4.3 % (0.0-10.0); %Neutrophils 74.7 % (42.0-75.0); Hematocrit 33.5 % (36.0-47.0); Hemoglobin 10.2 g/dL (12.0-16.0); Mean Corpuscular Hemoglobin 29.7 pg (27.0-31.0); Mean Corpuscular Volume 97.4 fL (78.0-98.0); Platelet Count 260 10x3/uL (130-400); Red Blood Cell (RBC) Count 3.44 mill/uL (4.20-5.40); White Blood Cell (WBC) Count 22.78 10x3/uL (4.8-10.8)
[2024-12-11 02:16] VITALS: BMI 14.8
[2024-12-11] MEDS: levETIRAcetam 500 MG (5 mL) VIAL SLOW IVP SCH ×3 (02:44→09:09)
[2024-12-11] MEDS: Magnesium 2 GM/50 ML(in water) 2 GM in Premix 1 BAG IVPB SCH (02:44)
[2024-12-11] MEDS: Potassium Bicarbonate/Cit Ac 20 MEQ TAB PER TUBE SCH (02:45)
[2024-12-11 04:10] LABS: ALT (SGPT) 21 U/L (Less than 34); AST (SGOT) 61 U/L (11-34); Albumin 1.9 g/dL (3.1-4.5); Alkaline Phosphatase 56 U/L (40-110); Anion Gap 25 mmol/L (10-20); BUN (Urea Nitrogen) 51 mg/dL (9.8-20.1); Bilirubin, Total 1.1 mg/dL (0.3-1.2); CK (CPK) 256 U/L (29-168); Calc. Creatinine Clearance 14 mL/min (70-130); Calcium 8.6 mg/dL (7.8-10.44); Carbon Dioxide 13 mmol/L (23-31); Chloride 129 mmol/L (98-107); Globulin 3.0 g/dL (2.4-3.5); Glucose 201 mg/dL (80-115); Magnesium 1.9 mg/dL (1.6-2.6); Potassium 2.6 mmol/L (3.5-5.1); Sodium 164 mmol/L (136-145)
[2024-12-11] MEDS ORDERED: NOREPINEPHRINE 8 MG/250 ML-D5W 250 ML IVPB SCH (04:15)
[2024-12-11] MEDS: Hydrocortisone Sod Succ/PF 100 mg/2 ml Vial IVP SCH ×2 (04:37→06:20)
[2024-12-11] MEDS: Albumin 25% 25 GM (100 mL) BOT IVPB SCH ×2 (04:38→06:19)
[2024-12-11] MEDS: Vasopressin In 0.9 % NaCl 100 ML IV SCH ×2 (04:58→21:23)
[2024-12-11] MEDS: Acetaminophen 325 MG TAB PO SCH (06:19)
[2024-12-11 07:28] LABS: Actual Bicarbonate (HCO3a) 18.1 mEq/L (22-28); Base Excess (BEa) -4.7 mEq/L (-2.0 to +3.0); CO2 Tension 25.7 mmHg (35.0-45.0); Calcium, Ionized (arterial) 1.13 mmol/L (1.12-1.30); Hematocrit-ABG 26 % (36.0-47.0); Hemoglobin (Hb) 9.0 g/dL (12.0-16.0); O2 Tension (PaO2), arterial 109.9 mmHg (> 80.0); Potassium - ABG Lab 3.79 mmol/L (3.70-5.30); pH, Arterial 7.466 (7.35-7.45)
[2024-12-11 07:34] LABS: ALV-art Gradient 214.475 mmHg (0-20); Puncture Site Left Radial artery
[2024-12-11 07:54] LABS: Anion Gap 21 mmol/L (10-20); BUN (Urea Nitrogen) 48 mg/dL (9.8-20.1); Calc. Creatinine Clearance 16 mL/min (70-130); Calcium 8.9 mg/dL (7.8-10.44); Carbon Dioxide 17 mmol/L (23-31); Chloride 119 mmol/L (98-107); Glucose 238 mg/dL (80-115); Potassium 3.7 mmol/L (3.5-5.1); Sodium 153 mmol/L (136-145)
[2024-12-11] MEDS ORDERED: Aspirin 81 mg Enteric Coated Tablet PO SCH (09:00)
[2024-12-11] MEDS: Nitroglycerin 2% Ointment 1 INCH/1 GM Packet TOP SCH (09:06)
[2024-12-11] MEDS: Aspirin Chewable 81 MG TAB PER TUBE SCH (09:09)
[2024-12-11] MEDS: Pantoprazole 40 MG VIAL IVP SCH (09:09)
[2024-12-11] MEDS: Enoxaparin 30 MG (0.3 mL) SYRINGE SC SCH (09:09)
[2024-12-11 09:32] LABS: ALT (SGPT) 16 U/L (Less than 34); AST (SGOT) 45 U/L (11-34); Albumin 3.9 g/dL (3.1-4.5); Alkaline Phosphatase 37 U/L (40-110); Anion Gap 21 mmol/L (10-20); BUN (Urea Nitrogen) 48 mg/dL (9.8-20.1); Bilirubin, Total 1.6 mg/dL (0.3-1.2); Calc. Creatinine Clearance 15 mL/min (70-130); Calcium 8.7 mg/dL (7.8-10.44); Carbon Dioxide 20 mmol/L (23-31); Chloride 119 mmol/L (98-107); Globulin 1.7 g/dL (2.4-3.5); Glucose 249 mg/dL (80-115); Potassium 3.7 mmol/L (3.5-5.1); Sodium 156 mmol/L (136-145)
[2024-12-11] MEDS ORDERED: Heparin 10,000 UNITS/ 10 ML VIAL SLOW IVP SCH ×2 (11:00→21:00)
[2024-12-11 11:19] VITALS: BMI 15.0
[2024-12-11 13:42] LABS: Hematocrit 23.7 % (36.0-47.0); Hemoglobin 7.4 g/dL (12.0-16.0); Platelet Count 135 10x3/uL (130-400)
[2024-12-11 14:04] LABS: Anion Gap 21 mmol/L (10-20); BUN (Urea Nitrogen) 44 mg/dL (9.8-20.1); Calc. Creatinine Clearance 18 mL/min (70-130); Calcium 7.7 mg/dL (7.8-10.44); Carbon Dioxide 13 mmol/L (23-31); Chloride 124 mmol/L (98-107); Glucose 207 mg/dL (80-115); Potassium 3.4 mmol/L (3.5-5.1); Sodium 155 mmol/L (136-145)
[2024-12-11] MEDS: Potassium Chloride 20 MEQ in Premix 1 BAG IVPB SCH (15:12)
[2024-12-11 17:46] LABS: Anion Gap 24 mmol/L (10-20); BUN (Urea Nitrogen) 39 mg/dL (9.8-20.1); Calc. Creatinine Clearance 18 mL/min (70-130); Calcium 7.7 mg/dL (7.8-10.44); Carbon Dioxide 13 mmol/L (23-31); Chloride 126 mmol/L (98-107); Glucose 200 mg/dL (80-115); Potassium 4.2 mmol/L (3.5-5.1); Sodium 159 mmol/L (136-145)
[2024-12-11 21:58] LABS: Anion Gap 25 mmol/L (10-20); BUN (Urea Nitrogen) 39 mg/dL (9.8-20.1); Calc. Creatinine Clearance 18 mL/min (70-130); Calcium 7.7 mg/dL (7.8-10.44); Carbon Dioxide 10 mmol/L (23-31); Chloride 129 mmol/L (98-107); Glucose 178 mg/dL (80-115); Potassium 4.3 mmol/L (3.5-5.1); Sodium 160 mmol/L (136-145)
[2024-12-12] MEDS: NOREPINEPHRINE 8 MG/250 ML-D5W 250 ML IVPB SCH (00:20)
[2024-12-12] MEDS: Sodium Bicarb 50 MEQ/50 ML Abboject 8.4% SYRINGE IVP SCH (00:20)
[2024-12-12 01:42] LABS: Anion Gap 26 mmol/L (10-20); BUN (Urea Nitrogen) 39 mg/dL (9.8-20.1); Calc. Creatinine Clearance 18 mL/min (70-130); Calcium 7.4 mg/dL (7.8-10.44); Carbon Dioxide 10 mmol/L (23-31); Chloride 127 mmol/L (98-107); Glucose 180 mg/dL (80-115); Potassium 4.5 mmol/L (3.5-5.1); Sodium 158 mmol/L (136-145)
[2024-12-12] MEDS ORDERED: Sodium Bicarb 50 MEQ/50 ML Abboject 8.4% SYRINGE IVP SCH (02:15)
[2024-12-12] MEDS: Sodium Bicarb 50 MEQ/50 ML Abboject 8.4% SYRINGE ONE (02:20)
[2024-12-12 02:31] LABS: Actual Bicarbonate (HCO3a) 26.4 mEq/L (22-28); Base Excess (BEa) 5.1 mEq/L (-2.0 to +3.0); CO2 Tension 26.4 mmHg (35.0-45.0); Calcium, Ionized (arterial) 0.82 mmol/L (1.12-1.30); Hematocrit-ABG 23 % (36.0-47.0); Hemoglobin (Hb) 7.8 g/dL (12.0-16.0); O2 Tension (PaO2), arterial 92.2 mmHg (> 80.0); Potassium - ABG Lab 4.18 mmol/L (3.70-5.30)
[2024-12-12 02:32] LABS: pH, Arterial 7.618 (7.35-7.45)
[2024-12-12 03:58] LABS: Hematocrit 25.1 % (36.0-47.0); Hemoglobin 8.1 g/dL (12.0-16.0); Mean Corpuscular Hemoglobin 30.2 pg (27.0-31.0); Mean Corpuscular Volume 93.7 fL (78.0-98.0); Platelet Count 138 10x3/uL (130-400); Red Blood Cell (RBC) Count 2.68 mill/uL (4.20-5.40); White Blood Cell (WBC) Count 24.59 10x3/uL (4.8-10.8)
[2024-12-12 04:04] LABS: ALT (SGPT) 30 U/L (Less than 34); AST (SGOT) 132 U/L (11-34); Albumin 2.9 g/dL (3.1-4.5); Alkaline Phosphatase 54 U/L (40-110); Anion Gap 35 mmol/L (10-20); BUN (Urea Nitrogen) 41 mg/dL (9.8-20.1); Bilirubin, Total 1.8 mg/dL (0.3-1.2); CK (CPK) 2275 U/L (29-168); Calc. Creatinine Clearance 19 mL/min (70-130); Calcium 6.8 mg/dL (7.8-10.44); Carbon Dioxide 13 mmol/L (23-31); Chloride 124 mmol/L (98-107); Globulin 1.2 g/dL (2.4-3.5); Glucose 222 mg/dL (80-115); Magnesium 2.3 mg/dL (1.6-2.6); Potassium 4.3 mmol/L (3.5-5.1); Sodium 168 mmol/L (136-145)
[2024-12-12 04:37] LABS: Burr Cells SLIGHT = 2-5 cells HPF (0-1); Nucleated RBC (Manual Ct) 7 % (0); Platelet Adequacy Comment Platelets Normal; Smudge Cells 8.9 %
[2024-12-12 04:58] LABS: PTT Greater than 250.0 sec (22.9-36.1)
[2024-12-12 06:47] LABS: Anion Gap 39 mmol/L (10-20); BUN (Urea Nitrogen) 41 mg/dL (9.8-20.1); Calc. Creatinine Clearance 19 mL/min (70-130); Calcium 6.6 mg/dL (7.8-10.44); Carbon Dioxide 8 mmol/L (23-31); Chloride 122 mmol/L (98-107); Glucose 292 mg/dL (80-115); Potassium 4.8 mmol/L (3.5-5.1); Sodium 164 mmol/L (136-145)
[2024-12-12] MEDS ORDERED: Vancomycin Dose by Levels Sliding Scale (Wt <71) FS SCH (07:15)
[2024-12-12 07:20] VITALS: BP 83/57
[2024-12-12 07:30] LABS: Base Excess (BEa) -18.9 mEq/L (-2.0 to +3.0); Calcium, Ionized (arterial) 0.87 mmol/L (1.12-1.30); Hematocrit-ABG 24 % (36.0-47.0); Hemoglobin (Hb) 8.2 g/dL (12.0-16.0); O2 Tension (PaO2), arterial 131.9 mmHg (> 80.0); Potassium - ABG Lab 4.59 mmol/L (3.70-5.30); pH, Arterial 7.226 (7.35-7.45)
[2024-12-12 07:31] LABS: Actual Bicarbonate (HCO3a) 6.8 mEq/L (22-28); CO2 Tension 16.8 mmHg (35.0-45.0)
[2024-12-12 07:32] LABS: ALV-art Gradient 132.300 mmHg (0-20); Puncture Site Arterial Line
[2024-12-12 07:37] LABS: Actual Bicarbonate (HCO3a) 14.5 mEq/L (22-28)
[2024-12-12 07:38] LABS: Potassium - ABG Lab 2.35 mmol/L (3.70-5.30)
[2024-12-12] MEDS: CALCIUM GLUC 1 GM/NS 50 ML 1 GM in Premix 1 BAG IVPB SCH (07:54)
[2024-12-12 08:12] LABS: PTT Greater than 250.0 sec (22.9-36.1)
[2024-12-12] MEDS: Vancomycin 1 GM in Premix 1 BAG IVPB SCH (08:33)
[2024-12-12] MEDS ORDERED: Hydrocortisone Sod Succ/PF 100 mg/2 ml Vial IVP SCH (09:00)
[2024-12-12] MEDS ORDERED: Acetaminophen 325 MG TAB PO SCH (09:00)
[2024-12-12 09:58] VITALS: TEMP 98.5
[2024-12-12] MEDS ORDERED: Glycopyrrolate 0.4 MG/ 2 ML VIAL SLOW IVP PRN (09:59)
[2024-12-12 10:34] LABS: Anion Gap 38 mmol/L (10-20); BUN (Urea Nitrogen) 37 mg/dL (9.8-20.1); Calc. Creatinine Clearance 21 mL/min (70-130); Calcium 6.9 mg/dL (7.8-10.44); Carbon Dioxide Less than 8 mmol/L (23-31); Chloride 119 mmol/L (98-107); Glucose 296 mg/dL (80-115); Potassium 4.8 mmol/L (3.5-5.1); Sodium 157 mmol/L (136-145)
[2024-12-12] MEDS ORDERED: LevoFLOXacin 500 mg/D5W 500 MG in Premix 1 BAG IVPB SCH (21:00)
== END 2024-12-12 11:53 | disposition expired | DRG 871 ==
LOC: ERS 20:44 → CCU 12-11 00:08
PROVIDERS: ADMIT Student in an Organized Health Care Education/Training Program; ATTEND Hospitalist
PROC: 0D9670Z Drainage of Stomach with Drainage Device, Via Natural or Artificial Opening (ICD-10-PCS; principal; 2024-12-11)
PROC: 30233J1 Transfusion of Nonautologous Serum Albumin into Peripheral Vein, Percutaneous Approach (ICD-10-PCS; 2024-12-11)
PROC: 3E03329 Introduction of Other Anti-infective into Peripheral Vein, Percutaneous Approach (ICD-10-PCS; 2024-12-11)
PROC: 3E033XZ Introduction of Vasopressor into Peripheral Vein, Percutaneous Approach (ICD-10-PCS; 2024-12-11)
PROC: 4A133R1 Monitoring of Arterial Saturation, Peripheral, Percutaneous Approach (ICD-10-PCS; 2024-12-11)
PROC: XX20X89 Monitoring of Brain Electrical Activity, Computer-aided Detection and Notification, New Technology Group 9 (ICD-10-PCS; 2024-12-11)
PROC: 03HB33Z Insertion of Infusion Device into Right Radial Artery, Percutaneous Approach (ICD-10-PCS; 2024-12-11)
PROC: 4A133B1 Monitoring of Arterial Pressure, Peripheral, Percutaneous Approach (ICD-10-PCS; 2024-12-11)
PROC: 4A133J1 Monitoring of Arterial Pulse, Peripheral, Percutaneous Approach (ICD-10-PCS; 2024-12-11)
PROC: 5A1945Z Respiratory Ventilation, 24-96 Consecutive Hours (ICD-10-PCS; 2024-12-11)
DX: A41.9 Sepsis, unspecified organism (principal); G92.8 Other toxic encephalopathy; J96.01 Acute respiratory failure with hypoxia; R65.21 Severe sepsis with septic shock; I21.A1 Myocardial infarction type 2; E87.0 Hyperosmolality and hypernatremia; R64 Cachexia; N17.9 Acute kidney failure, unspecified; N39.0 Urinary tract infection, site not specified; E87.20 Acidosis, unspecified; G40.89 Other seizures; Z68.1 Body mass index [BMI] 19.9 or less, adult; M62.82 Rhabdomyolysis; I82.622 Acute embolism and thrombosis of deep veins of left upper extremity; D62 Acute posthemorrhagic anemia; I96 Gangrene, not elsewhere classified; Z51.5 Encounter for palliative care; Z66 Do not resuscitate; E87.6 Hypokalemia; L89.151 Pressure ulcer of sacral region, stage 1; L89.891 Pressure ulcer of other site, stage 1; L89.141 Pressure ulcer of left lower back, stage 1; F10.20 Alcohol dependence, uncomplicated; E86.9 Volume depletion, unspecified; I10 Essential (primary) hypertension; F12.10 Cannabis abuse, uncomplicated; F41.9 Anxiety disorder, unspecified; F17.210 Nicotine dependence, cigarettes, uncomplicated; E86.0 Dehydration; Z79.899 Other long term (current) drug therapy; Z88.8 Allergy status to other drugs, medicaments and biological substances; Z88.1 Allergy status to other antibiotic agents; Z91.012 Allergy to eggs; Z98.891 History of uterine scar from previous surgery; Z98.890 Other specified postprocedural states; Z78.1 Physical restraint status
CPT/HCPCS: 31500; 36415; 36416; 36600; 70450; 71045; 74176; 80053; 80306; 80307; 82140; 82550; 82805; 83605; 83690; 83735; 84100; 84145; 84443; 84484; 85025; 85730; 86141; 87077; 87086; 87186; 87400; 87426; 93005; 93923; 94002; 94003; 95705; 96365; 96366; 96367; 96375; 97139; C9254; J0613; J1644; J1650; J1720; J1953; J1956; J2060; J2470; J3373; J3411; J3475; J3480; J7030; J7050; J7070; P9047